=== PATIENT | male | born 1965 | race Caucasian/White ===

== ENCOUNTER 2023-12-13 21:57 | Inpatient (IN) | payer BC, SELFPAY ==
[2023-12-13 18:13] VITALS: BP 143/110
[2023-12-13 18:42] LABS: % Basophils 0.3 % (0-2); % Eosinophils 1.9 % (0-6); % Immature Granulocytes 0.5 % (0-0.5); % Lymphocytes 32.2 % (20.5-51.1); % Monocytes 12.4 % (1.7-9.3); % Neutrophils 52.7 % (42.2-75.2); Absolute Eosinophils 0.2 10^3/uL (0-0.7); Absolute Immature Granulocytes 0.1 10^3/uL (0-0.05); Absolute Lymphocytes 3.9 10^3/uL (1.2-3.4); Absolute Monocytes 1.5 10^3/uL (0.1-0.6); Absolute Neutrophils 6.4 10^3/uL (1.4-6.5); Hematocrit 43.6 % (39.0-52.0); Mean Corp Hgb Conc. 36.7 g/dL (33.0-37.0); Mean Corpuscular Hgb 32.9 pg (27.0-31.0); Mean Corpuscular Volume 89.7 fL (80.0-94.0); Mean Platelet Volume 9.8 fL (7.4-10.4); Nucleated Red Blood Cells % 0 % (-); Platelet Count 356 10^3/uL (130-400); Red Blood Cell Count 4.86 10^6/uL (4.70-6.10); Red Cell Dist. Width 12.1 % (11.5-14.5); White Blood Cell Count 12.1 10^3/uL (4.8-10.8)
[2023-12-13 18:55] LABS: ALT (SGPT) 46 U/L (0-50); AST (SGOT) 31 U/L (17-59); Albumin 3.7 g/dl (3.5-5.0); Alkaline Phosphatase 60 U/L (38-126); Blood Urea Nitrogen 19 mg/dl (9-20); Calcium 9.4 mg/dl (8.4-10.2); Carbon Dioxide 33 mmol/L (22-30); Chloride 96 mmol/L (98-107); Glucose 109 mg/dl (70-99); Potassium 4.7 mmol/L (3.5-5.1); Sodium 136 mmol/L (135-145); Total Bilirubin 0.6 mg/dl (0.2-1.3); Total Protein 6.5 g/dl (6.3-8.2); eGFR > 60.00
[2023-12-13 19:05] LABS: Troponin I < 0.012 ng/ml
[2023-12-13 19:06] LABS: Lipase 1642 U/L (23-300)
[2023-12-13] MEDS: DILAUDID 0.5 MG IV (19:38)
[2023-12-13] MEDS: PROTONIX IV 40 MG IV (19:38)
[2023-12-13] MEDS: ZOFRAN 4 MG IV (19:39)
[2023-12-13] MEDS: NSS 1000 IV (19:45)
--- NOTE | 2023-12-13 19:53 | ED.GENMED ---
History of Present Illness
General
Chief Complaint: Breathing Problem
Source: patient
Exam Limitations: none
Time Seen by Provider: 12/13/23 19:22
Travel History
Have you had any contact with someone who has COVID-19?: No
Do you have any symptoms of coronavirus? Fever > 100 degrees, chills, cough, shortness of breath, sore throat, loss of taste or smell, muscle aches, or headache?: No
History of Present Illness
History of Present Illness:
This is a 58 year old male that comes in with c/o upper abd discomfort. States that for the past 2 days he has this upper abd discomfort. States that he feels that it is pushing up on the diaphragm and it is difficulty for him to take a deep breath.
States that he had dental work with a graft last Wednesday. States that he was on Prednisone which he finished on Wednesday. He was also taking Ibuprofen 800mg TID and Amoxicillin TID. States that he stopped the Ibuprofen today. States that he feels
slightly SOB and had some loose stool today with bright red blood. States that he does have hemorrhoids. States that he also felt a little lightheaded. Denies any fever, chills, chest pain, nausea, vomiting, headache, urinary burning.
Past History
Past History
ED Past Medical History: None; Negative HTN, Hypercholesterolemia or NIDDM
ED Past Surgical History: Other (Splenectomy)
Social History
Tobacco: Non-smoker
Alcohol: Occasional
Personal:
Living: with family
Review of Systems
Review of Systems
All Other Systems: ROS reviewed and negative except as documented in HPI and ROS
Constitutional: Reports no symptoms; Denies fever or chills
EENT: Reports no symptoms
Respiratory: Reports trouble breathing (Slight); Denies cough
Cardiac: Denies chest pain
ABD/GI: Reports abdominal pain (Upper abd); Denies nausea, vomiting or diarrhea
: Reports no symptoms
Musculoskeletal: Reports no symptoms
Skin: Reports no symptoms
Neurological: Reports dizzy (lightheaded); Denies headache
Psychiatric: Reports no symptoms
Phy Exam
General Physical Exam
General Presentation: well appearing and no apparent distress
General age: appears stated age
General Skin: warm and dry
General Habitus: normal
General Mental: alert
General Hydration: appears well hydrated
ENT Exam
ENT Exam: TM's normal, pharynx normal and neck supple
Eye Exam
Eye Exam: EOMI
Cardiovascular Exam
Cardiovascular Exam: regular rate/rhythm, no edema, no murmur and normal peripheral pulses
Pulmonary Exam
Pulmonary Exam: lungs clear, no respiratory distress, no rales, chest non tender, no crackles, no rhonchi, no wheezing and no cough
Gastrointestinal Exam
Gastrointestinal Exam: normal bowel sounds, soft, no organomegaly, no pulsatile mass, non distended and tender (Tenderness with palpation epigastric area )
Musculoskeletal Exam
Musculoskeletal Exam: full ROM and no edema
Skin Exam
Skin Exam: normal color, warm/dry, no rash and no petechia
Psychiatric Exam
Psychiatric Exam: normal mood/affect
Scores
Heart Failure Risk
Heart Failure Risk Score: Not Applicable
Course
Orders/Labs/Results
Orders:
Orders
12/13/23 18:18
Electrocardiogram (*1) Urgent
Reason for Study: Shortness of Breath
EKG- Treatment ONCE
12/13/23 18:32
Complete Blood Count/With Diff Urgent
Comprehensive Metabolic Panel Urgent
Lipase Urgent
Triglycerides Urgent
Troponin I Urgent
12/13/23 19:34
0.9% Sodium Chloride 1000 ml [Nss] 1,000 ml IV BOLUS
HYDROmorphone [Dilaudid] 0.5 mg IV NOW STA
Ondansetron Injectable [Zofran] 4 mg IV NOW STA
Pantoprazole [Protonix IV] 40 mg IV NOW STA
US Abdomen Complete/Upper Urgent
Comment:
Reason For Exam: Upper abd pain, Pancreatitis
12/13/23 19:59
CR Chest - 2 Views Urgent
Comment:
Reason For Exam: SOB
12/13/23 21:21
Add On- LAB Routine
Tests Added?: triglycerides
Admit/Transfer Patient As Directed
Co-Sign Provider:
Level of Care: Inpatient admission
Assign to:: Medical/Surgical
Physician / Group: Chris
Diagnosis: Pancreatitis
Reason for Hospitalization: IVFs
Expected length of stay greater than two midnights?: Yes
ELOS- Estimated Length of Stay in days: 3
I certify the patient meets the requirements for IP care: Yes
12/13/23 21:22
Code Status As Directed
Resuscitation Status: Full Code
12/13/23 22:36
Acetaminophen [Tylenol] 650 mg PO Q4HPRN PRN
HYDROmorphone [Dilaudid] 0.25 mg IV Q3HPRN PRN
Lactated Ringers [Lr] 1,000 ml IV 125 mls/hr
Ondansetron Injectable [Zofran] 4 mg IV Q6HPRN PRN
12/13/23 22:36
Activity As Directed
Activity Level: Out of Bed-Early Mobility
With Assistance
I&O [Intake/ Output] As Directed
Frequency: q12h
Pneumatic Compression Sleeves As Directed
Type: Knee high
Vital Signs As Directed
Frequency: Per unit guidelines
DX Deep Vein Thrombosis Video Routine
12/14/23 Breakfast
NPO
Allow oral meds: Yes
Allow clear liquids: Sips of Clears
NPO with Ice Chips: Yes
Basic Metabolic Panel IN AM
Complete Blood Count/No Diff IN AM
Lipase IN AM
Magnesium IN AM
12/14/23 08:00
Lactobac/Bifidobac [Visbiome] 1 cap PO DAILY
Pantoprazole [Protonix] 40 mg PO BID
Abnormal Lab Results
12/13/23
18:32
WBC 12.1 H 10^3/uL
(4.8-10.8)
MCH 32.9 H pg
(27.0-31.0)
Abs Immat Gran (auto) 0.1 H 10^3/uL
(0-0.05)
Absolute Lymphs (auto) 3.9 H 10^3/uL
(1.2-3.4)
Absolute Monos (auto) 1.5 H 10^3/uL
(0.1-0.6)
Monocytes % 12.4 H %
(1.7-9.3)
Chloride 96 L mmol/L
(98-107)
Carbon Dioxide 33 H mmol/L
(22-30)
Glucose 109 H mg/dl
(70-99)
Triglycerides 674 H mg/dl
(10-149)
Lipase 1642 H* U/L
(23-300)
12/13/23 18:32
12/13/23 18:32
Leukocytosis, Chloride slightly low. carbon dioxide slightly elevated. Glucose nonfasting. Lipase elevation (pancreatitis). Troponin <0.012
Vital Signs
Initial and Last Documented VS:
Initial Vital Signs
Temp Pulse Resp BP Pulse Ox
98.0 F 73 16 143/110 98
12/13/23 18:13 12/13/23 18:13 12/13/23 18:13 12/13/23 18:13 12/13/23 18:13
Last Documented Vital Signs
Temp Pulse Resp BP Pulse Ox
98.0 F 73 16 135/83 95
12/13/23 18:13 12/13/23 18:13 12/13/23 18:13 12/13/23 22:18 12/13/23 23:00
MDM/Problems Addressed
Differential Diagnosis Includes:
Gastritis, Pancreatitis, Ulcers
MDM/Problems Addressed:
This is a 58 year old male that comes in with c/o upper abd discomfort. States that this starteed 2 days ago. Patient was taking Steroids, Ibuprofen and Amoxicillin after dental work.
Will check labs and US
Back into see patient. Explained that he has pancreatitis. US is normal. Explained that he will be admitted for further evaluation. Hospitalist notified.
Chronic conditions affecting care:
NA
Acute Exacerbation and/or Progression of Chronic Illness:
NA
*Radiology
Radiology exam reviewed: radiology read reviewed (US- NO cholelithiasis or bile duct dilation. Chest- No acute cardiopulmonary process)
*Pulse Oximetry
Patient hypoxic: no
*EKG
Interpreted by ED Provider?: Yes
Heart Rate: 72
Rate: normal
Rhythm: sinus
[place]: normal axis
Interval: normal interval
QRS Pattern: normal QRS
Ischemia: no ischemia
*Hand Mixer Interpretation
Rate: Hand Mixer- N/A
*Critical Care Note
Total Time (30-74mins, 75-104mins- exclusive of procedures): Not Applicable
ED Attending Note
-
Portions of this chart may have been created with voice recognition software.� Occasional wrong word or��sound alike� substitutions may have occurred due to the inherent limitations of voice recognition software.
Discharge Plan
Departure
Patient Disposition: Admit
Date of Disposition: 12/13/23
Time of Disposition: 20:49
Admit to: Med/Surg
Presentation/result/management discussed w/ accepting MD/DO: Hospitalist
Patient with high blood pressure during this ER visit?: Yes
Condition: Good
Covid-19: Not Applicable
Discharge Problem:
Acute pancreatitis
Interventions
Interventions:
*Risk Screen - Suicide Last Done: 12/13/23 19:47
*General Assessment Last Done: 12/13/23 19:29
*Neglect/Abuse Screening Last Done: 12/13/23 19:47
*ED COVID-19 Vaccine History Last Done: 12/13/23 18:13
ED- Cardiac Assessment Last Done: 12/13/23 19:49
ED- Pulmonary Assessment Last Done: 12/13/23 19:49
[2023-12-13 20:45] VITALS: BP 144/103
--- NOTE | 2023-12-13 21:27 | HPS.HSE ---
Addendum entered and electronically signed by Felipe Perez DO 12/13/23 22:26:
Patient seen and examined independently. Agree with findings and plan as set forth by Mala Wang PA-C.
Patient is a 58y M with no significant PMH who presents to ED complaining of abdominal pain x 3 days. Patient notes that he underwent dental procedure last Wednesday including tooth extraction and grafting. He was placed on amoxicillin,
prednisone and ibuprofen 800mg TID following that procedure. Patient states that he completed the prednisone course. He developed abdominal discomfort in the epigastric region with radiation to the back on Wednesday. He stopped taking the
ibuprofen at that point. His symptoms have not improved. The pain is fairly constant. He denies any N/V. Patient denies any prior history of similar symptoms.
Patient had EGD done in October 2023 showing evidence of reflux and possible eosinophilic esophagitis.
He was prescribed Nexium daily but notes that he never started that medication.
Ass:
Abdominal Pain
Pancreatitis
Suspected Gastritis / PUD
GERD / Eosinophilic Esophagitis
Recent Dental Procedure
Plan:
Admit for further evaluation and treatment.
NPO, IVFs, pain control.
Discontinue NSAIDs, steroid, amoxicillin, etc.
Suspect drug-induced gastritis +/- pancreatitis (though no N/V).
GI evaluation for additional recommendations.
Follow for clinical improvement.
Original Note:
Family Physician
-
Family Physician: Ashkan Chen
Chief Complaint
-
Abdominal Pain
History of Present Illness
Patient is a 58 y/o male who presents with abdominal pain x 3 days. Patient reports the pain is located in the upper abdomen and radiates around to the back. He reports slightly decreased appetite, but is able to tolerate food without increased
pain, nausea or vomiting. He has been taking amoxicillin, prednisone and ibuprofen following a recent dental procedure. He did stop the ibuprofen yesterday as a possible cause, but notes this did not improve his symptoms. He reports some loose
stools since being on the antibiotics. He denies fevers, sweats or chills. Patient reports recent EGD in Oct 2023 and was instructed to take a PPI afterwards which patient has not been taking. Reviewed EGD report which raised suspicion for
eosinophilic esophagitis which was confirmed with biopsy.
Medical History
Past Medical History
Past Medical History: Reports None
Past Surgical History: Reports Other
Additional Past Surgical History:
Splenectomy
Social History
Tobacco: Non-smoker
Alcohol: Other (Rare alcohol use. Patient reports half a beer last week)
Family History
Family History: Not pertinent
Allergies / Home Medications
Allergies reflects when Allergies were last updated in [employer].
Home Medications with original date entered in [employer]
Allergy/Medication List:
Allergies
Allergy/AdvReac Type Severity Reaction Status Date / Time
No Known Allergies Allergy Verified 12/13/23 18:17
Home Medications
amoxicillin 500 mg capsule 500 mg PO TID 12/13/23
ibuprofen 800 mg tablet 800 mg PO TIDPRN PRN mild pain 12/13/23
omega 6-qxw-xal-fish oil 1,000 mg (120 mg-180 mg) capsule (Fish Oil) 1 cap PO DAILY 12/13/23
therapeutic multivitamin 1 tab PO DAILY 12/13/23
Review of Systems
-
A 12 point ROS was completed and negative except as noted: Yes
Constitutional: Denies Fever or Chills
Respiratory: Denies Cough or Trouble Breathing
Cardiac: Denies Chest Pain or Palpitations
Abdomen/GI: Reports See HPI
Physical Exam
Vital Signs
Vital Signs
Temp Pulse Resp BP Pulse Ox
98.0 F 73 16 144/103 97
12/13/23 18:13 12/13/23 18:13 12/13/23 18:13 12/13/23 20:45 12/13/23 20:45
Physical Exam
General: Comfortable and Conversant
HEENT: Anicteric and Moist mucous membranes
Respiratory: Clear and Non Labored Respirations
Cardiac: S1/S2 and Regular Rhythm
GI: Soft, Non Distended and Tender (Epigastric region without rebound or guarding)
Musculoskeletal: No Clubbing, No Cyanosis and No Edema
Skin: Warm and Dry
Neuro: Awake, Alert, Oriented and Nonfocal/grossly intact
Laboratory Results
-
12/13/23 18:32
12/13/23 18:32
Laboratory Results
Total Bilirubin 0.6 mg/dl (0.2-1.3) 12/13/23 18:32
AST 31 U/L (17-59) 12/13/23 18:32
ALT 46 U/L (0-50) 12/13/23 18:32
Alkaline Phosphatase 60 U/L (38-126) 12/13/23 18:32
Troponin I < 0.012 ng/ml 12/13/23 18:32
Lipase 1642 U/L (23-300) H* 12/13/23 18:32
Data Reviewed
-
Lab Data: Labs Reviewed by me
Impression/Plan
-
Abdominal Pain, possible Pancreatitis secondary to recent steroids vs Gastritis/PUD in setting of NSAIDs and steroids
-Consult GI
-NPO overnight pending GI eval
-Check triglyceride level
-Continue IVFs
-Continue Protonix BID
-Continue Dilaudid prn
Recent Dental Work
-Will discontinue amoxicillin as completed 6/7 days
-Completed coarse of steroids
-Stop NSAIDs
DVT proph: SCDs
Code Status: Full Code
[2023-12-13 22:13] LABS: Triglycerides 674 mg/dl (10-149)
[2023-12-13 22:18] VITALS: BP 135/83
[2023-12-13] MEDS: LR 1000 IV (23:05)
[2023-12-14] VITALS (7 sets, daily range): BP systolic 127–147; BP diastolic 78–110; BMI 29.4
[2023-12-14 05:43] LABS: Hemoglobin 14.6 g/dL (13.0-18.0); Mean Corp Hgb Conc. 35.6 g/dL (33.0-37.0); Mean Corpuscular Volume 92.8 fL (80.0-94.0); Mean Platelet Volume 10.1 fL (7.4-10.4); Platelet Count 315 10^3/uL (130-400); Red Blood Cell Count 4.42 10^6/uL (4.70-6.10); Red Cell Dist. Width 12.1 % (11.5-14.5); White Blood Cell Count 10.9 10^3/uL (4.8-10.8)
[2023-12-14 06:12] LABS: Blood Urea Nitrogen 14 mg/dl (9-20); Calcium 8.4 mg/dl (8.4-10.2); Carbon Dioxide 31 mmol/L (22-30); Chloride 99 mmol/L (98-107); Glucose 89 mg/dl (70-99); Potassium 3.9 mmol/L (3.5-5.1); Sodium 135 mmol/L (135-145)
[2023-12-14 06:26] LABS: Estimated Creatinine Clearance > 125 ml/min; Lipase 635 U/L (23-300); eGFR > 60.00
[2023-12-14] MEDS: LR 1000 IV ×3 (07:23→21:07)
[2023-12-14] MEDS: VISBIOME 1 CAP PO (07:43)
[2023-12-14] MEDS: PROTONIX 40 MG PO ×2 (07:43→21:07)
--- NOTE | 2023-12-14 10:00 | CON.GI ---
Addendum entered and electronically signed by Opal Krishnamurthy MD 12/14/23 21:30:
I saw and examined the patient.
The CARPET MEASURER or PA's note was reviewed and I agree with the note.
Comment: 58-year-old male with history of eosinophilic esophagitis diagnosed on recent upper endoscopy presenting with complaints of epigastric discomfort going to the back starting Wednesday. Last Wednesday he reports getting dental work done with
extraction and bone graft, prescribed ibuprofen 800mg 3 times a day, dexamethasone for 5 days and amoxicillin. He finished a course of dexamethasone and when abdominal discomfort started he stopped the ibuprofen. No nausea or vomiting. No fevers
or chills. No heartburn , constipation, diarrhea. He did have an episode of wipe type bleeding over the weekend but since then had normal formed stool. Recent upper endoscopy and colonoscopy with Dr. Reyes as below.
In the emergency room, he was noted to have elevated lipase with normal LFTs.
Abdominal ultrasound was unremarkable.
-Abdominal pain and elevated lipase suggesting acute pancreatitis, first episode.
No evidence of gallstones on ultrasound and no history of alcohol use
? Medication related-dexamethasone?
Will get CT scan of the abdomen and pelvis with oral and IV contrast.
Okay for clear liquid diet, continue IV hydration
Monitor lipase avoid NSAIDs
Okay for PPI
We will follow
Original Note:
Consultation
-
Date/Time Consultation Requested: 12/13/23 @22:36
Date/Time Consultation Performed: 12/14/23 @ 10:00
Requesting Provider: Mala Wang PA-C
Performing Provider: MOE Arrington; Dr. Krishnamurthy
Reason for Consultation: Abdominal Pain, pancreatitis, possible gastritis/PUD
Medical History
Chief Complaint / HPI
Chief Complaint: Abdominal pain
History of Present Illness:
The patient is a 58-year-old male with PMH significant for ?EoE (not compliant with PPI), hemorrhoids, who presented to the emergency room complaints of abdominal pain. We being asked evaluate for the presenting symptoms along with concern for
pancreatitis and gastritis. The patient reports that last week he underwent dental work and had been prescribed steroids, amoxicillin, and ibuprofen for pain management. He notes on Wednesday he was not feeling well,experiencing increased
discomfort in his abdomen and feeling generally unwell. He reports this lasted into Wednesday and was a constant, nagging pain in the middle of his abdomen. He reports the pain did radiate to his back and felt pressure into his upper chest. He notes
that he does have a history of muscle spasms and felt this was somewhat similar. He was told that ibuprofen can cause stomach problems therefore he stopped taking it but had been taking it 2-3 times per day since his dental procedure. He reports
he did not see improvement once stopping the ibuprofen. He also stopped his steroids on Wednesday. He denies any fevers, chills, nausea, vomiting, constipation, diarrhea, or abnormal weight loss. He does admit to 1 episode of slight rectal
bleeding x 1 episode and then it resolved. He otherwise denies any melena or hematemesis. He does have a history of hemorrhoids which was seen on colonoscopy in October 2023. He otherwise denies any use of alcohol significantly, with his last
alcoholic beverage on Wednesday last week. He denies any drug use or marijuana use. He denies any prior history of pancreatitis or other liver or GI problems. He denies any use of blood thinners. He underwent endoscopy on 11/02/[address] Reyes for
heartburn evaluation and dysphagia, which showed esophageal mucosal changes suggestive of EOE, gastritis, and 2 cm hiatal hernia. Colonoscopy was done at that time as well which showed nonbleeding internal hemorrhoids, diverticulosis in the sigmoid
colon otherwise normal. Routine labs in the ER showed a WBC 12.1, total bilirubin 0.6, AST 31, ALT 46, alk phos 60, triglycerides 674, lipase 1642. Ultrasound of the abdomen was done showing no evidence of gallstones or biliary ductal dilation. He
was made n.p.o., started on twice daily PPI, and admitted for further evaluation by GI.
Past Medical History
Past Medical History: Other (Eosinophilic esophagitis, hemorrhoids)
Past Surgical History: None
Social History
Tobacco: Non-Smoker
Alcohol: Other (Very rare alcohol use)
Drug: None
Personal:
Living: With Family
Family History
Family History: Reviewed & Not Pertinent and Other (Sister had her gallbladder removed, no family history of colon cancer or pancreatic cancer)
Allergies / Home Medications
Allergy/AdvReac Type Severity Reaction Status Date / Time
No Known Allergies Allergy Verified 12/13/23 18:17
Medication Instructions Recorded
amoxicillin 500 mg capsule 500 mg PO TID 12/13/23
ibuprofen 800 mg tablet 800 mg PO TIDPRN PRN mild pain 12/13/23
omega 5-idx-kjz-fish oil 1,000 mg 1 cap PO DAILY 12/13/23
(120 mg-180 mg) capsule (Fish Oil)
therapeutic multivitamin 1 tab PO DAILY 12/13/23
Review of Systems
-
History Source: Patient
Constitutional: Reports No Symptoms
EENT: Reports No Symptoms
Respiratory: Reports No Symptoms
Cardiac: Reports No Symptoms
Abdomen/GI: Reports Abdominal Pain and Other (Painless rectal bleeding x 1 episode)
: Reports No Symptoms
Musculoskeletal: Reports No Symptoms
Skin: Reports No Symptoms
Neurological: Reports No Symptoms
Vital Signs
Temp Pulse Resp BP Pulse Ox
98.4 F 69 16 127/85 97
12/14/23 07:30 12/14/23 07:30 12/14/23 07:30 12/14/23 07:30 12/14/23 07:30
Physical Exam
Exam
General: Well Developed and Well Nourished
HEENT: Normocephalic, Anicteric and Atraumatic
Respiratory: Clear
Cardiac: S1/S2 and Regular Rhythm
Breast: N/A
GI: Soft, Normal Bowel Sounds, Tender (Very minimally tender in the mid epigastric area) and Distended (Minimally distended)
Rectal: Deferred by Provider
Musculoskeletal: No Edema
Skin: Warm and Dry
Neuro: Awake, Alert and Oriented
Psych: Calm
Results
WBC 10.9 10^3/uL (4.8-10.8) H 12/14/23 05:26
Hgb 14.6 g/dL (13.0-18.0) 12/14/23 05:26
Hct 41.0 % (39.0-52.0) 12/14/23 05:26
MCV 92.8 fL (80.0-94.0) 12/14/23 05:26
Plt Count 315 10^3/uL (130-400) 12/14/23 05:26
Absolute Neuts (auto) 6.4 10^3/uL (1.4-6.5) 12/13/23 18:32
Sodium 135 mmol/L (135-145) 12/14/23 05:26
Potassium 3.9 mmol/L (3.5-5.1) 12/14/23 05:26
Chloride 99 mmol/L (98-107) 12/14/23 05:26
Carbon Dioxide 31 mmol/L (22-30) H 12/14/23 05:26
BUN 14 mg/dl (9-20) 12/14/23 05:26
Creatinine 0.8 mg/dL (0.7-1.3) 12/14/23 05:26
Calcium 8.4 mg/dl (8.4-10.2) 12/14/23 05:26
Total Bilirubin 0.6 mg/dl (0.2-1.3) 12/13/23 18:32
AST 31 U/L (17-59) 12/13/23 18:32
ALT 46 U/L (0-50) 12/13/23 18:32
Alkaline Phosphatase 60 U/L (38-126) 12/13/23 18:32
Lipase 635 U/L (23-300) H 12/14/23 05:26
Diagnostic Image Results:
12/13/23 US abdomen: no biliary dilation or cholelithiasis.
Prior GI Procedures:
EGD: Dr. Reyes, 11/02/2023: Changes consistent with eosinophilic esophagitis, confirmed on biopsy; gastritis, 2 cm hiatal hernia
Colonoscopy: Dr. Reyes 11/02/2024, sigmoid colon tics, internal nonbleeding hemorrhoids
Assessment / Plan
-
The patient is a 58-year-old male with a past medical history significant for eosinophilic esophagitis, hemorrhoids, who presented to the emergency room complaints of abdominal pain. We being asked evaluate for the presenting symptoms along with
concern for pancreatitis and gastritis. The patient underwent recent dental work last week, was prescribed ibuprofen, amoxicillin, and dexamethasone post surgery, now with abdominal pain and elevated lipase level. Ultrasound imaging showing no
concern for biliary etiology. LFTs within normal limits. Triglycerides significantly elevated at 674. Lipase 1642, down to 635. Mild leukocytosis but improving. His pain is improving at this time.
Problem list:
-abdominal pain, likely multifactorial gastritis v pancreatitis
-hx EoE not on PPI
-elevated lipase
-elevated triglycerides
-Leukocytosis
-History of hemorrhoid
Recommendations:
-Etiology of current symptoms possibly multifactorial with concern for pancreatitis versus gastritis versus medication induced versus other
--- No biliary etiology on ultrasound imaging with normal LFTs. He denies significant alcohol use.
--- The patient was taking dexamethasone which is a class Ib medication that can induce pancreatitis. Also likely component of gastritis with recent daily ibuprofen use and amoxicillin.
-Will continue twice daily PPI
-Okay to start clear liquid diet as his pain is improving
-Continue IV fluids with LR at 150 cc/h
-Repeat LFTs in a.m. to ensure they continue to stay normal
-Triglycerides are elevated but not significantly enough to cause pancreatitis. He will need OP follow-up/management of this.
-Consider repeat endoscopy inpatient versus outpatient pending clinical course
-Will follow
-
-
Thank you for consultation and allowing me to participate in the patient's care. Please call the education research analyst GI physician during the after hours with any questions or concerns.
--- NOTE | 2023-12-14 13:43 | W.PN.HOSP.TC ---
Today's Communication/Plan
-
Monitor vital signs see plan
GI following
Started on clears
Pain control
Continue with lactated Ringer
Assessment / Plan
Assessment / Plan
General: Comfortable and Conversant
HEENT: Anicteric and Moist mucous membranes
Respiratory: Clear and Non Labored Respirations
Cardiac: S1/S2 and Regular Rhythm
GI: Soft, Non Distended and Tender (Epigastric region without rebound or guarding)
Musculoskeletal: No Clubbing, No Cyanosis and No Edema
Skin: Warm and Dry
Neuro: Awake, Alert, Oriented and Nonfocal/grossly intact
Abdominal Pain, possible Pancreatitis secondary to recent steroids vs Gastritis/PUD in setting of NSAIDs and steroids
-lipase elevated; trending down
now on clears
GI following
Suspect pancreatitis could be secondary to dexamethasone, NSAIDs patient was taking 800 mg ibuprofen at least 3 times a day.
Triglycerides are elevated however not significantly elevated to cause pancreatitis.
-Continue IVFs
-Continue Protonix BID
-Continue Dilaudid prn
Recent Dental Work
-Will discontinue amoxicillin as completed 6/7 days
-Completed coarse of steroids
-Stop NSAIDs
DVT proph: SCDs
Code Status: Full Code
Anticipated Discharge: Within 24 hours
Subjective/Interval History
-
Date of Service: December 14, 2023
Abdominal pain is slowly improving
Objective Data
-
Labs:
Laboratory Results
12/14/23
05:26
WBC 10.9 H
Hgb 14.6
Hct 41.0
Plt Count 315
Sodium 135
Potassium 3.9
Chloride 99
Carbon Dioxide 31 H
BUN 14
Creatinine 0.8
Glucose 89
Calcium 8.4
Vital Signs:
Vital Signs
Temp Pulse Resp BP Pulse Ox
98.4 F 69 16 127/85 97
12/14/23 07:30 12/14/23 07:30 12/14/23 07:30 12/14/23 07:30 12/14/23 07:30
--- NOTE | 2023-12-14 15:30 | PTCARENOTE ---
pt aaox3. states sone discomfort in upper mid abd epigastric area. did not want pain med at this time. clear liquid diet provided. ivf running as ordered.
--- NOTE | 2023-12-14 21:22 | PTCARENOTE ---
Patient received from ED via wheelchair. LR infusing at 150ml/hr, patient denies any pain. Vital WNL, tolerating clears. Will monitor.
[2023-12-15] MEDS: LR 1000 IV ×3 (03:42→20:20)
[2023-12-15] MEDS: OMNIPAQUE 50 ML PO (08:00)
[2023-12-15] MEDS: TYLENOL 650 MG PO ×2 (08:09→18:23)
[2023-12-15] MEDS: VISBIOME 1 CAP PO (08:09)
[2023-12-15] MEDS: PROTONIX 40 MG PO ×2 (08:09→20:20)
[2023-12-15 08:12] VITALS: BP 138/93
[2023-12-15 09:11] LABS: % Basophils 0.3 % (0-2); % Eosinophils 4.4 % (0-6); % Immature Granulocytes 0.6 % (0-0.5); % Lymphocytes 36.9 % (20.5-51.1); % Monocytes 11.8 % (1.7-9.3); Absolute Eosinophils 0.4 10^3/uL (0-0.7); Absolute Immature Granulocytes 0.1 10^3/uL (0-0.05); Absolute Lymphocytes 3.3 10^3/uL (1.2-3.4); Absolute Neutrophils 4.1 10^3/uL (1.4-6.5); Hematocrit 44.1 % (39.0-52.0); Hemoglobin 15.5 g/dL (13.0-18.0); Mean Corp Hgb Conc. 35.1 g/dL (33.0-37.0); Mean Corpuscular Volume 91.1 fL (80.0-94.0); Nucleated Red Blood Cells % 0 % (-); Platelet Count 335 10^3/uL (130-400); Red Blood Cell Count 4.84 10^6/uL (4.70-6.10); Red Cell Dist. Width 12.3 % (11.5-14.5); White Blood Cell Count 8.8 10^3/uL (4.8-10.8)
[2023-12-15 10:01] LABS: Total Bilirubin 1.2 mg/dl (0.2-1.3)
[2023-12-15 10:18] LABS: ALT (SGPT) 37 U/L (0-50); AST (SGOT) 27 U/L (17-59); Albumin 3.3 g/dl (3.5-5.0); Alkaline Phosphatase 53 U/L (38-126); Blood Urea Nitrogen 11 mg/dl (9-20); Carbon Dioxide 31 mmol/L (22-30); Chloride 96 mmol/L (98-107); Estimated Creatinine Clearance 112 ml/min; Glucose 98 mg/dl (70-99); Potassium 4.3 mmol/L (3.5-5.1); Sodium 133 mmol/L (135-145); eGFR > 60.00
[2023-12-15 11:06] LABS: Lipase 368 U/L (23-300)
--- NOTE | 2023-12-15 12:00 | W.PN.HOSP.TC ---
Today's Communication/Plan
-
Monitor vital signs and see plan
CT scan
Continue with LR
Clears
GI to see today
Assessment / Plan
Assessment / Plan
General: Comfortable and Conversant
HEENT: Anicteric and Moist mucous membranes
Respiratory: Clear and Non Labored Respirations
Cardiac: S1/S2 and Regular Rhythm
GI: Soft, Non Distended and Tender (Epigastric region without rebound or guarding)
Musculoskeletal: No Clubbing, No Cyanosis and No Edema
Skin: Warm and Dry
Neuro: Awake, Alert, Oriented and Nonfocal/grossly intact
Abdominal Pain, possible Pancreatitis secondary to recent steroids vs Gastritis/PUD in setting of NSAIDs and steroids
-lipase elevated; trending down
now on clears
GI following
Suspect pancreatitis could be secondary to dexamethasone, NSAIDs patient was taking 800 mg ibuprofen at least 3 times a day.
Triglycerides are elevated however not significantly elevated to cause pancreatitis.
-Continue IVFs
-Continue Protonix BID
-Continue Dilaudid prn
CT pending
Recent Dental Work
-Will discontinue amoxicillin as completed 6/7 days
-Completed coarse of steroids
-Stop NSAIDs
DVT proph: SCDs
Code Status: Full Code
Anticipated Discharge: Within 24 hours
Subjective/Interval History
-
Date of Service: December 15, 2023
Pain is improving
Objective Data
-
Labs:
Laboratory Results
12/15/23
08:37
WBC 8.8
Hgb 15.5
Hct 44.1
Plt Count 335
Sodium 133 L
Potassium 4.3
Chloride 96 L
Carbon Dioxide 31 H
BUN 11
Creatinine 0.8
Glucose 98
Calcium 9.0
Total Bilirubin 1.2
AST 27
ALT 37
Alkaline Phosphatase 53
Vital Signs:
Vital Signs
Temp Pulse Resp BP Pulse Ox
98.3 F 78 16 138/93 94
12/15/23 08:12 12/15/23 08:12 12/15/23 08:12 12/15/23 08:12 12/15/23 08:12
I&O
12/14/23 12/15/23 12/16/23
06:59 06:59 06:59
Intake Total 600 / 600
Balance 600 / 600
--- NOTE | 2023-12-15 12:24 | W.PN.GI.CBS2 ---
Addendum entered and electronically signed by Opal Krishnamurthy MD 12/15/23 18:55:
I saw and examined the patient.
The CLAIM TAKER or PA's note was reviewed and I agree with the note.
Comment: Patient currently feels well. Tolerating low-fat diet.
Reviewed CT scan with patient. Mild pancreatitis noted on the CT scan, also focal abnormal wall thickening along the cardia, recent upper endoscopy was unremarkable except evidence of eosinophilic esophagitis.
-From pancreatitis standpoint, he is improving.
Low-fat diet
Continue to abstain from alcohol
Will follow
-Abnormal CT scan with thickening of the cardia
Recent upper endoscopy October 2023 unremarkable
Will need to follow-up again with Dr. Reyes in the office
Original Note:
Today's Communication / Plan
-
-Etiology of current symptoms possibly multifactorial with concern for pancreatitis versus gastritis versus medication induced versus other
--- The patient was taking dexamethasone which is a class Ib medication that can induce pancreatitis. Also likely component of gastritis with recent daily ibuprofen use and amoxicillin.
discussed CT with pancreatitis and gastric thickening finding with pt and . He just completed EGD 11/02/23 with gastritis-- will review with Dr. Krishnamurthy any reason to need to repeat
would be concerned recent increased NSAID and steroid use lead to gastric thickening vs other
discussed NSAID avoidance
cont PPI BID
repeat TG as 674 to assess for downward trend
lipase improving, LFT's remains normal
trial low fat diet for today
decreased IVF to 80ml/hr
Assessment / Plan
-
The patient is a 58-year-old male with a past medical history significant for eosinophilic esophagitis, hemorrhoids, who presented to the emergency room complaints of abdominal pain. We being asked evaluate for the presenting symptoms along with
concern for pancreatitis and gastritis. The patient underwent recent dental work last week, was prescribed ibuprofen, amoxicillin, and dexamethasone post surgery, now with abdominal pain and elevated lipase level. Ultrasound imaging showing no
concern for biliary etiology. LFTs within normal limits. Triglycerides significantly elevated at 674. Lipase 1642, down to 635. Mild leukocytosis but improving.
12/15/23 CT Abd/pel W Iv And Oral Contr
1. � Subtle slightly decreased attenuation along the pancreatic head which could possibly be related to edematous change/pancreatitis. No abnormal focal pancreatic lesion identified. No signs of significant peripancreatic inflammatory changes.
2. � As above, apparent focal abnormal wall thickening along the cardia of the stomach. While component of underdistention is possible, inflammatory or neoplastic process cannot be excluded. This could be further evaluated with endoscopy. Near this
level, there are mildly enlarged gastrohepatic ligament lymph nodes as above.
3. � Hepatic fatty infiltration.
4. � Postoperative changes of the spleen. As described above, there is small mass in the left lower quadrant as well as a small mesenteric nodule which could represent small splenules or residual splenic tissue related to the prior surgery
EGD:� Dr. Reyes, 11/02/2023: Changes consistent with eosinophilic esophagitis, confirmed on biopsy; gastritis, 2 cm hiatal hernia
Problem list:
-abdominal pain, likely multifactorial gastritis v pancreatitis
- abnormal CT with concern for pancreatitis but wall thickening on stomach also noted with hx recent EGD
-hx EoE not on PPI
-elevated lipase
-elevated triglycerides
-Leukocytosis
-History of hemorrhoid
Recommendations:
-Etiology of current symptoms possibly multifactorial with concern for pancreatitis versus gastritis versus medication induced, TG elevation versus other
--- The patient was taking dexamethasone which is a class Ib medication that can induce pancreatitis. Also likely component of gastritis with recent daily ibuprofen use and amoxicillin.
discussed CT with pancreatitis and gastric thickening finding with pt and . He just completed EGD 11/02/23 with gastritis-- will review with Dr. Krishnamurthy any reason to need to repeat
would be concerned recent increased NSAID and steroid use lead to gastric thickening vs other
discussed NSAID avoidance
cont PPI BID
repeat TG as 674 to assess for downward trend
lipase improving, LFT's remains normal
trial low fat diet for today
decreased IVF to 80ml/hr
Subjective
Subjective
Date of Service: December 15, 2023
12/15/23 brown stool on clear diet abdominal pain improved
Objective
Data Reviewed
Laboratory Data:
Laboratory Results
12/15/23 08:37
12/15/23 08:37
Laboratory Results
Magnesium 2.0 mg/dl (1.6-2.3) 12/14/23 05:26
Total Bilirubin 1.2 mg/dl (0.2-1.3) 12/15/23 08:37
AST 27 U/L (17-59) 12/15/23 08:37
ALT 37 U/L (0-50) 12/15/23 08:37
Alkaline Phosphatase 53 U/L (38-126) 12/15/23 08:37
Lipase 368 U/L (23-300) H 12/15/23 08:37
Vital Signs and I&O:
Vital Signs
Temp Pulse Resp BP Pulse Ox
98.3 F 78 16 138/93 94
12/15/23 08:12 12/15/23 08:12 12/15/23 08:12 12/15/23 08:12 12/15/23 08:12
I&O
12/14/23 12/15/23 12/16/23
06:59 06:59 06:59
Intake Total 600 / 600
Balance 600 / 600
Physical Exam
Physical Exam
HEENT: Anicteric and Moist mucous membranes
Cardiology: Normal Sinus Rhythm
Pulmonary: Clear
GI: Soft, Non Distended and Non Tender
Extremities: No Edema
[2023-12-15 13:34] LABS: Triglycerides 290 mg/dl (10-149)
--- NOTE | 2023-12-15 15:50 | CM ---
Alert awake oriented patient who lives with his Mala who lives in a 2 story home with 0 step to enter and 13 steps to bed and bathroom. He is independent in driving and in all activities of daily living.He was offered VN he declined need.No
adaptive devices.
No VN hx / No SNF history
Pharmacy [facility]
PCP DR Chen
PLAN Home Declined VN
[2023-12-15 16:15] VITALS: BP 135/92
[2023-12-15] MEDS: DILAUDID 0.25 MG IV (21:49)
[2023-12-15 23:14] VITALS: BP 114/95
[2023-12-16 05:45] LABS: % Basophils 0.6 % (0-2); % Eosinophils 5.4 % (0-6); % Immature Granulocytes 0.3 % (0-0.5); % Lymphocytes 39.8 % (20.5-51.1); % Monocytes 14.8 % (1.7-9.3); % Neutrophils 39.1 % (42.2-75.2); Absolute Eosinophils 0.4 10^3/uL (0-0.7); Absolute Lymphocytes 2.8 10^3/uL (1.2-3.4); Absolute Neutrophils 2.8 10^3/uL (1.4-6.5); Hematocrit 42.9 % (39.0-52.0); Hemoglobin 15.3 g/dL (13.0-18.0); Mean Corp Hgb Conc. 35.7 g/dL (33.0-37.0); Mean Corpuscular Hgb 32.5 pg (27.0-31.0); Mean Corpuscular Volume 91.1 fL (80.0-94.0); Mean Platelet Volume 9.8 fL (7.4-10.4); Nucleated Red Blood Cells % 0 % (-); Platelet Count 313 10^3/uL (130-400); Red Blood Cell Count 4.71 10^6/uL (4.70-6.10)
[2023-12-16 06:12] LABS: ALT (SGPT) 34 U/L (0-50); AST (SGOT) 25 U/L (17-59); Albumin 3.4 g/dl (3.5-5.0); Alkaline Phosphatase 65 U/L (38-126); Blood Urea Nitrogen 10 mg/dl (9-20); Calcium 8.6 mg/dl (8.4-10.2); Carbon Dioxide 34 mmol/L (22-30); Chloride 99 mmol/L (98-107); Estimated Creatinine Clearance 100 ml/min; Glucose 91 mg/dl (70-99); Lipase 221 U/L (23-300); Potassium 4.1 mmol/L (3.5-5.1); Sodium 132 mmol/L (135-145); Total Bilirubin 1.2 mg/dl (0.2-1.3); eGFR > 60.00
[2023-12-16] MEDS: PROTONIX 40 MG PO (07:44)
[2023-12-16] MEDS: VISBIOME 1 CAP PO (07:44)
[2023-12-16] MEDS: LR 1000 IV (07:53)
[2023-12-16 08:22] VITALS: BP 139/84
--- NOTE | 2023-12-16 10:50 | W.PN.HOSP.TC ---
Today's Communication/Plan
-
Monitor vital sign closely plan
Tolerated low-fat
Patient will follow-up with GI outpatient
Discharge today
Time of discharge 34 minutes
Assessment / Plan
Assessment / Plan
General: Comfortable and Conversant
HEENT: Anicteric and Moist mucous membranes
Respiratory: Clear and Non Labored Respirations
Cardiac: S1/S2 and Regular Rhythm
GI: Soft, Non Distended and non Tender
Musculoskeletal: No Clubbing, No Cyanosis and No Edema
Skin: Warm and Dry
Neuro: Awake, Alert, Oriented and Nonfocal/grossly intact
Abdominal Pain, possible Pancreatitis secondary to recent steroids vs Gastritis/PUD in setting of NSAIDs and steroids
-lipase elevated; trending down
now on low fat; patient will follow-up with GI outpatient
GI following
Suspect pancreatitis could be secondary to dexamethasone, NSAIDs patient was taking 800 mg ibuprofen at least 3 times a day.
Triglycerides are elevated however not significantly elevated to cause pancreatitis.
-Continue IVFs
-Continue Protonix;Mild pancreatitis noted on the CT scan, also focal abnormal wall thickening along the cardia
Recent endoscopy with eosinophilic esophagitis
Hyponatremia
monitor
Recent Dental Work
-Will discontinue amoxicillin as completed 6/7 days
-Completed coarse of steroids
-Stop NSAIDs
DVT proph: SCDs
Code Status: Full Code
Anticipated Discharge: Today
Subjective/Interval History
-
Date of Service: December 16, 2023
pain is better
Objective Data
-
Labs:
Laboratory Results
12/16/23
05:21
WBC 7.0
Hgb 15.3
Hct 42.9
Plt Count 313
Sodium 132 L
Potassium 4.1
Chloride 99
Carbon Dioxide 34 H
BUN 10
Creatinine 0.9
Glucose 91
Calcium 8.6
Total Bilirubin 1.2
AST 25
ALT 34
Alkaline Phosphatase 65
Vital Signs:
Vital Signs
Temp Pulse Resp BP Pulse Ox
97.5 F 73 16 139/84 97
12/16/23 08:22 12/16/23 08:22 12/16/23 08:22 12/16/23 08:22 12/16/23 08:22
I&O
12/15/23 12/16/23 12/17/23
06:59 06:59 06:59
Intake Total 600 / 600 1919
Balance 600 / 600 1919
--- NOTE | 2023-12-16 10:58 | W.DCSUMMARY ---
Discharge Summary
Discharge Data
Date of Admission: 12/13/23
Date of Discharge: 12/16/23
-
Pending Results: No
Hospital Course
58-year-old male with past medical history of recent dental work came to the hospital for abdominal pain known to have pancreatitis. Patient lipase was initially elevated which was downtrending prior to discharge. Patient symptoms over time
improved with pain control and fluids. Patient was able to tolerate low-fat diet prior to the discharge. CT scan was done which showed mild pancreatitis. There was also focal abnormal wall thickening along the cardia of the stomach for which GI
recommended patient to follow-up with them outpatient. It was determined that patient likely had pancreatitis due to dexamethasone and NSAIDs. Once patient symptoms improved he was then discharged home with close follow-up with all his physicians
outpatient.
Discharge Plan
-
Patient Disposition: Home (Routine Discharge)
Discharge Diagnosis/Procedures: Acute pancreatitis likely secondary to dexamethasone
Diet: Low Fat
Activity: As tolerated
Driving Restrictions: As prior to admission
Bathing Restrictions: None
Referrals:
Aurora Reyes MD [Active] - (call to schedule GI follow up)
Ashkan Chen DO [Family Provider] - in less than 1 week
Prescriptions:
New
acetaminophen 325 mg Tablet
650 mg PO Q4HPRN PRN (Reason: mild pain/ fever>100.5F) Qty: 30 0RF
Lactobac/Bifidobac [Visbiome]
1 cap PO DAILY Qty: 30 0RF
pantoprazole [Protonix] 40 mg tablet,delayed release (DR/EC)
40 mg PO BID Qty: 60 0RF
Continued
therapeutic multivitamin Tablet
1 tab PO DAILY
omega 3-ooy-irz-fish oil [Fish Oil] 1,000 mg (120 mg-180 mg) Capsule
1 cap PO DAILY
Discontinued
amoxicillin 500 mg Capsule
500 mg PO TID
Patient Comments:
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
ibuprofen 800 mg Tablet
800 mg PO TIDPRN PRN (Reason: mild pain)
Discharge Orders:
Discharge Patient (As Directed); Ordered 12/16/23
Ordered By: Elvis Frey
Discharge Date and Time
Discharge Date/Time: 12/16/23 17:18
--- NOTE | 2023-12-16 11:30 | CM ---
entered order for discharge.
Pt tolerating low fat diet.
Pt aid he will drive himself home today. His truck is at hospital.
He notified of his dc.
Offered VN he declined need.
PLAN Home no needs .
== END 2023-12-16 17:18 | disposition home or self-care (01) | DRG 439 ==
LOC: 3 WEST ACU 21:57
PROVIDERS: Emergency Medicine; Physician Assistant Medical; ADMITTING PHYSICIAN Hospitalist; ATTENDING PHYSICIAN Internal Medicine; CONSULT PHYSICIAN Internal Medicine Gastroenterology; EMERGENCY PHYSICIAN Emergency Medicine; FAMILY PHYSICIAN Family Medicine
DX: K85.30 Drug induced acute pancreatitis without necrosis or infection (principal); E87.1 Hypo-osmolality and hyponatremia; K29.70 Gastritis, unspecified, without bleeding; K21.9 Gastro-esophageal reflux disease without esophagitis
CPT/HCPCS: 71046; 74177; 76700; 80048; 80053; 83690; 83735; 84478; 84484; 85025; 85027; 93005; 96361; 96374; 96375; 99285; Q9967

== ENCOUNTER 2024-01-06 18:50 | Emergency (ER) | payer BC, SELFPAY ==
[2024-01-06 19:02] VITALS: BP 142/100
[2024-01-06 19:28] LABS: % Eosinophils 3.8 % (0-6); % Immature Granulocytes 0.3 % (0-0.5); % Lymphocytes 43.8 % (20.5-51.1); % Monocytes 11.2 % (1.7-9.3); % Neutrophils 39.9 % (42.2-75.2); Absolute Basophils 0.1 10^3/uL (0-0.2); Absolute Eosinophils 0.3 10^3/uL (0-0.7); Absolute Monocytes 0.8 10^3/uL (0.1-0.6); Absolute Neutrophils 2.7 10^3/uL (1.4-6.5); Hematocrit 42.1 % (39.0-52.0); Hemoglobin 15.3 g/dL (13.0-18.0); Mean Corp Hgb Conc. 36.3 g/dL (33.0-37.0); Mean Corpuscular Hgb 32.6 pg (27.0-31.0); Mean Corpuscular Volume 89.6 fL (80.0-94.0); Mean Platelet Volume 10.3 fL (7.4-10.4); Nucleated Red Blood Cells % 0 % (-); Platelet Count 325 10^3/uL (130-400); White Blood Cell Count 6.8 10^3/uL (4.8-10.8)
[2024-01-06 19:46] LABS: ALT (SGPT) 29 U/L (0-50); AST (SGOT) 36 U/L (17-59); Alkaline Phosphatase 55 U/L (38-126); Blood Urea Nitrogen 15 mg/dl (9-20); Calcium 9.7 mg/dl (8.4-10.2); Carbon Dioxide 30 mmol/L (22-30); Chloride 98 mmol/L (98-107); Glucose 89 mg/dl (70-99); Potassium 4.2 mmol/L (3.5-5.1); Sodium 137 mmol/L (135-145); Total Bilirubin 0.8 mg/dl (0.2-1.3); Total Protein 6.9 g/dl (6.3-8.2); eGFR > 60.00
[2024-01-06 19:47] LABS: Lipase 70 U/L (23-300)
[2024-01-06 21:48] VITALS: BP 145/102
[2024-01-06] MEDS: TYLENOL 1000 MG PO (21:56)
[2024-01-06] MEDS: PROTONIX 40 MG PO (21:57)
--- NOTE | 2024-01-06 21:57 | ED.GENMED ---
History of Present Illness
General
Chief Complaint: Abdominal Pain
Source: patient
Exam Limitations: none
Time Seen by Provider: 01/06/24 21:28
Travel History
Have you had any contact with someone who has COVID-19?: No
Do you have any symptoms of coronavirus? Fever > 100 degrees, chills, cough, shortness of breath, sore throat, loss of taste or smell, muscle aches, or headache?: No
History of Present Illness
History of Present Illness:
This is a 58 year old male that comes in with c/o upper abd pain. Patient was seen in the ER a few weeks ago with Pancreatitis. States that all day today he had this upper abd discomfort. States that it was not as bad as before. Denies any fever,
chills, chest pain, SOB, nausea, vomiting, diarrhea, headache, dizziness, urinary burning.
Past History
Past History
ED Past Medical History: None and Other (Pancreatitis); Negative HTN, Hypercholesterolemia or NIDDM
ED Past Surgical History: Tonsilectomy and Other (Splenectomy)
Social History
Tobacco: Non-smoker
Alcohol: Occasional
Personal:
Living: with family
Employment: Employed
Review of Systems
Review of Systems
All Other Systems: ROS reviewed and negative except as documented in HPI and ROS
Constitutional: Reports no symptoms; Denies fever or chills
EENT: Reports no symptoms
Respiratory: Reports no symptoms; Denies cough or trouble breathing
Cardiac: Reports no symptoms; Denies chest pain
ABD/GI: Reports abdominal pain; Denies nausea, vomiting or diarrhea
: Reports no symptoms
Musculoskeletal: Reports no symptoms
Skin: Reports no symptoms
Neurological: Reports no symptoms; Denies dizzy or headache
Psychiatric: Reports no symptoms
Phy Exam
General Physical Exam
General Presentation: well appearing and no apparent distress
General age: appears stated age
General Skin: warm and dry
General Habitus: normal
General Mental: alert
General Hydration: appears well hydrated
ENT Exam
ENT Exam: TM's normal, pharynx normal and neck supple
Eye Exam
Eye Exam: EOMI
Cardiovascular Exam
Cardiovascular Exam: regular rate/rhythm, no edema, no murmur and normal peripheral pulses
Pulmonary Exam
Pulmonary Exam: lungs clear, no respiratory distress, no rales, chest non tender, no crackles, no rhonchi, no wheezing and no cough
Gastrointestinal Exam
Gastrointestinal Exam: normal bowel sounds, soft, no organomegaly, no pulsatile mass, non distended and tender (Slight upper abd tenderness with palpation)
Musculoskeletal Exam
Musculoskeletal Exam: full ROM and no edema
Skin Exam
Skin Exam: normal color, warm/dry, no rash and no petechia
Psychiatric Exam
Psychiatric Exam: normal mood/affect
Course
Orders/Labs/Results
Orders:
Orders
01/06/24 19:08
Electrocardiogram (*1) Urgent
Reason for Study: Abdominal Pain
EKG- Treatment ONCE
01/06/24 19:20
Comprehensive Metabolic Panel Urgent
Lipase Urgent
01/06/24 19:21
Complete Blood Count/With Diff Urgent
01/06/24 21:47
Acetaminophen [Tylenol] 1,000 mg PO NOW STA
Pantoprazole [Protonix] 40 mg PO NOW STA
US Abdomen Complete/Upper Urgent
Comment:
Reason For Exam: Upper abd pain
Abnormal Lab Results
01/06/24
19:21
MCH 32.6 H pg
(27.0-31.0)
Absolute Monos (auto) 0.8 H 10^3/uL
(0.1-0.6)
Neutrophils % 39.9 L %
(42.2-75.2)
Monocytes % 11.2 H %
(1.7-9.3)
01/06/24 19:21
01/06/24 19:20
Labs unremarkable. Lipase normal at 70
Vital Signs
Initial and Last Documented VS:
Initial Vital Signs
Temp Pulse Resp BP Pulse Ox
98.2 F 73 18 142/100 98
01/06/24 19:02 01/06/24 19:02 01/06/24 19:02 01/06/24 19:02 01/06/24 19:02
Last Documented Vital Signs
Temp Pulse Resp BP Pulse Ox
97.8 F 64 18 145/102 99
01/06/24 21:48 01/06/24 21:48 01/06/24 19:02 01/06/24 21:48 01/06/24 21:48
MDM/Problems Addressed
Differential Diagnosis Includes:
Pancreatitis, GERD, Ulcers
MDM/Problems Addressed:
This is a 58 year old male that comes in with c/o upper abd pain. States that it is not as bad as it was in the past but felt he better get checked.
Will get labs and US.
Back into see patent. States that the Tylenol helped some but he still has this burning. Explained that this may be a gastritis. Will add Carafate as patient is already taking Protonix 40mg BID. Patient to follow up with the family doctor or the GI
specialist. Patient to return with increased pain, vomiting, or fever.
Chronic conditions affecting care:
Pancreatitis
Acute Exacerbation and/or Progression of Chronic Illness:
NA
*Radiology
Radiology exam reviewed: radiology read reviewed (US- Normal appearance of the gallbladder. Fatty infiltration of the liver wit no evidence of a focal hepatic lesion. History of splenectomy. SPleen is not visualized on today's Ultrasound. The
pancreas is unable to be adequately visualized, with no gross abnormality in the peripancreatic region. )
*Pulse Oximetry
Patient hypoxic: no
*EKG
Interpreted by ED Provider?: NA
Rate: EKG- N/A
*Manager Of Training And Development Interpretation
Rate: Manager Of Training And Development- N/A
*Critical Care Note
Total Time (30-74mins, 75-104mins- exclusive of procedures): Not Applicable
ED Attending Note
-
Portions of this chart may have been created with voice recognition software.� Occasional wrong word or��sound alike� substitutions may have occurred due to the inherent limitations of voice recognition software.
Discharge Plan
Departure
Patient Disposition: Home (Routine Discharge)
Date of Disposition: 01/06/24
Time of Disposition: 23:11
Patient with high blood pressure during this ER visit?: Yes
Condition: Good
Covid-19: Not Applicable
Discharge Problem:
Acute upper abdominal pain, Gastritis
Instructions: Gastritis (DC), Ulcer and Gastritis Diet, Abdominal Pain, BLOOD PRESSURE
Prescriptions:
New
sucralfate [Carafate] 1 gram tablet
1 g PO ACHS Qty: 40 0RF
Rx Instructions:
30min-1hour before meals and HS. Dissolve in 10ml of water
No Action
therapeutic multivitamin Tablet
1 tab PO DAILY
omega 3-lfh-dxt-fish oil [Fish Oil] 1,000 mg (120 mg-180 mg) Capsule
1 cap PO DAILY
acetaminophen 325 mg Tablet
650 mg PO Q4HPRN PRN (Reason: mild pain/ fever>100.5F) Qty: 30 0RF
Lactobac/Bifidobac [Visbiome]
1 cap PO DAILY Qty: 30 0RF
pantoprazole [Protonix] 40 mg tablet,delayed release (DR/EC)
40 mg PO BID Qty: 60 0RF
Referrals:
Ashkan Chen, [Family Provider] - Call in 1-3 days for appt
Activity Restrictions/Additional Instructions:
As discussed, your blood work was normal. Your lipase was 70. Your Ultrasound is negative for any acute process. This may be Gastritis. Please continue with your Protonix 40mg twice daily. You have now been given a prescription for Carafate. Please
take this 30min to 1 hour before eating and again at bedtime. Please try to stop any caffeine intake as this is hard on the stomach lining. Follow up with the family doctor for recheck. IF YOU HAVE INCREASED OR CHANGING PAIN, FEVER, VOMITING, OR
YOU HAVE ANY OTHER CONCERNS PLEASE RETURN TO THE [facility]
Interventions
Interventions:
*Risk Screen - Suicide Last Done: 01/06/24 19:02
*General Assessment Last Done: 01/06/24 19:02
*Neglect/Abuse Screening Last Done: 01/06/24 19:02
*ED COVID-19 Vaccine History Last Done: 01/06/24 19:02
NS-Nrrtow-Qharweixgs Assessment Last Done: 01/06/24 21:44
[2024-01-06] MEDS: CARAFATE SUSPENSION 1 GM PO (23:21)
== END 2024-01-06 23:25 | disposition home or self-care (01) ==
LOC: EMR 18:50
PROVIDERS: EMERGENCY PHYSICIAN Emergency Medicine; FAMILY PHYSICIAN Family Medicine
DX: R10.9 Unspecified abdominal pain (principal); K29.70 Gastritis, unspecified, without bleeding; Z90.81 Acquired absence of spleen; R10.10 Upper abdominal pain, unspecified
CPT/HCPCS: 99284; 76700; 80053; 83690; 85025; 93005

== ENCOUNTER → 2024-01-11 06:25 | Day surgery (SDC) | payer BC, SELFPAY | LOC: GI 06:25 | PROVIDERS: ATTENDING PHYSICIAN Internal Medicine Gastroenterology; FAMILY PHYSICIAN Family Medicine | DX: R10.13 Epigastric pain (principal); K44.9 Diaphragmatic hernia without obstruction or gangrene; K31.89 Other diseases of stomach and duodenum; K29.50 Unspecified chronic gastritis without bleeding; K20.0 Eosinophilic esophagitis | CPT/HCPCS: 43239; 88305; 88341; 88342 ==

== ENCOUNTER 2024-07-10 21:51 | Emergency (ER) | payer BC, SELFPAY ==
[2024-07-10 21:58] VITALS: BP 154/94
[2024-07-10 22:24] LABS: % Basophils 1.2 % (0-2); % Eosinophils 4.2 % (0-6); % Immature Granulocytes 0.2 % (0-0.5); % Lymphocytes 47.1 % (20.5-51.1); % Monocytes 9.1 % (1.7-9.3); % Neutrophils 38.2 % (42.2-75.2); Absolute Basophils 0.1 10^3/uL (0-0.2); Absolute Eosinophils 0.3 10^3/uL (0-0.7); Absolute Lymphocytes 3.1 10^3/uL (1.2-3.4); Absolute Monocytes 0.6 10^3/uL (0.1-0.6); Absolute Neutrophils 2.5 10^3/uL (1.4-6.5); Hematocrit 40.9 % (39.0-52.0); Hemoglobin 14.8 g/dL (13.0-18.0); Mean Corp Hgb Conc. 36.2 g/dL (33.0-37.0); Mean Corpuscular Hgb 31.9 pg (27.0-31.0); Mean Corpuscular Volume 88.1 fL (80.0-94.0); Mean Platelet Volume 10.2 fL (7.4-10.4); Nucleated Red Blood Cells % 0 % (-); Platelet Count 305 10^3/uL (130-400); Red Blood Cell Count 4.64 10^6/uL (4.70-6.10); White Blood Cell Count 6.6 10^3/uL (4.8-10.8)
[2024-07-10 22:39] LABS: ALT (SGPT) 27 U/L (0-50); AST (SGOT) 33 U/L (17-59); Albumin 4.3 g/dl (3.5-5.0); Alkaline Phosphatase 60 U/L (38-126); Amylase 56 U/L (30-110); Blood Urea Nitrogen 13 mg/dl (9-20); Calcium 9.4 mg/dl (8.4-10.2); Carbon Dioxide 28 mmol/L (22-30); Chloride 102 mmol/L (98-107); Glucose 101 mg/dl (70-99); Lipase 87 U/L (23-300); Potassium 4.1 mmol/L (3.5-5.1); Sodium 138 mmol/L (135-145); Total Bilirubin 0.6 mg/dl (0.2-1.3); Total Protein 6.9 g/dl (6.3-8.2); eGFR > 60.00
[2024-07-11 00:40] VITALS: BP 135/95; BMI 29.0
--- NOTE | 2024-07-11 01:02 | ED.GENMED ---
History of Present Illness
General
Chief Complaint: Abdominal Pain
Source: patient
Exam Limitations: none
Time Seen by Provider: 07/11/24 00:34
Nursing documentation reviewed up to this point in time: agreed with
History of Present Illness
History of Present Illness:
59-year-old male presents with abdominal pain onset a day or 2 ago after doing a lot of heavy yard work crampy, on the surface, somewhat reminiscent of his prior pancreatitis but did not go to his back no vomiting no chest pain no shortness of
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
Past History
Past History
ED Past Medical History: None and Other (Pancreatitis); Negative HTN, Hypercholesterolemia or NIDDM
ED Past Surgical History: Tonsilectomy and Other (Splenectomy)
Social History
Tobacco: Non-smoker
Alcohol: Occasional
Drug: None
Personal:
Living: with family
Employment: Employed
Review of Systems
Review of Systems
All Other Systems: ROS reviewed and negative except as documented in HPI and ROS
Constitutional: Denies fever or fatigue
EENT: Reports no symptoms
Respiratory: Reports no symptoms
Cardiac: Reports no symptoms
ABD/GI: Reports abdominal pain and nausea; Denies vomiting, diarrhea, constipated, bloody stools, black stools or anorexia
: Reports no symptoms
Musculoskeletal: Reports no symptoms
Skin: Reports no symptoms
Phy Exam
Physical Exam
Physical Exam:
Physical Exam
General: no apparent distress, not acutely ill
Neck: No jaundice
Heart: s1/s2 regular rate and rhythm, no murmur. equal radial pulses.
Lungs: no acute respiratory distress. clear bilaterally
Abdomen: Soft no guarding or rebound
Neuro: alert and oriented. no focal neurological deficits
Skin: no rash
Psychiatric: well kept. interactive and cooperative
Extremities: no edema.
Course
Orders/Labs/Results
Orders:
Orders
07/10/24 22:06
Amylase Urgent
Complete Blood Count/With Diff Urgent
Comprehensive Metabolic Panel Urgent
Lipase Urgent
07/11/24 01:00
EKG [Electrocardiogram (*1)] Urgent
Reason for Study: CAD
EKG- Treatment ONCE
Acetaminophen [Tylenol] 1,000 mg PO NOW STA
Abnormal Lab Results
07/10/24
22:06
RBC 4.64 L 10^6/uL
(4.70-6.10)
MCH 31.9 H pg
(27.0-31.0)
Neutrophils % 38.2 L %
(42.2-75.2)
Glucose 101 H mg/dl
(70-99)
07/10/24 22:06
07/10/24 22:06
Vital Signs
Initial and Last Documented VS:
Initial Vital Signs
Temp Pulse Resp BP Pulse Ox
98.5 F 70 24 154/94 100
07/10/24 21:58 07/10/24 21:58 07/10/24 21:58 07/10/24 21:58 07/10/24 21:58
Last Documented Vital Signs
Temp Pulse Resp BP Pulse Ox
98.5 F 61 16 135/95 97
07/10/24 21:58 07/11/24 00:40 07/11/24 00:40 07/11/24 00:40 07/11/24 00:40
MDM/Problems Addressed
Differential Diagnosis Includes:
Muscle strain gastritis no signs of pancreatitis clinically and by labs
Biliary colic and appendicitis to be less likely by history and physical
MDM/Problems Addressed:
Abdominal pain after doing yard
Chronic conditions affecting care:
Splenectomy
*Pulse Oximetry
Patient hypoxic: no
*EKG
Interpreted by ED Provider?: Yes
Interpretation: normal
Comparison EKG: no comparison EKG present
Heart Rate: 58
Rate: normal
Rhythm: sinus
Ischemia: no ischemia
*Critical Care Note
Total Time (30-74mins, 75-104mins- exclusive of procedures): Not Applicable
Update Note
Update Note:
Update patient nontoxic afebrile soft nontender abdomen, no guarding or rebound no anorexia he tells me symptoms started after doing some heavy yard work, tells me he is different than his pancreatitis pain because is not as severe and does not go
to his back is supported by blood work today, no NSAID use, will check EKG try some p.o. fluids and Tylenol
1:52 AM patient feeling better EKG noted will discharge instructed to return to the ER for worsening symptoms
ED Attending Note
-
Portions of this chart may have been created with voice recognition software.� Occasional wrong word or��sound alike� substitutions may have occurred due to the inherent limitations of voice recognition software.
Discharge Plan
Departure
Patient Disposition: Home (Routine Discharge)
Date of Disposition: 07/11/24
Time of Disposition: 01:52
Patient with high blood pressure during this ER visit?: No
Condition: Good
Covid-19: Not Applicable
Discharge Problem:
Abdominal pain
Instructions: Abdominal Pain
Prescriptions:
No Action
therapeutic multivitamin Tablet
1 tab PO DAILY
omega 7-tma-kpb-fish oil [Fish Oil] 1,000 mg (120 mg-180 mg) Capsule
1 cap PO DAILY
acetaminophen 325 mg Tablet
650 mg PO Q4HPRN PRN (Reason: mild pain/ fever>100.5F) Qty: 30 0RF
Lactobac/Bifidobac [Visbiome]
1 cap PO DAILY Qty: 30 0RF
pantoprazole [Protonix] 40 mg tablet,delayed release (DR/EC)
40 mg PO BID Qty: 60 0RF
sucralfate [Carafate] 1 gram tablet
1 g PO ACHS Qty: 40 0RF
Rx Instructions:
30min-1hour before meals and HS. Dissolve in 10ml of water
Referrals:
Ashkan Chen, DO [Family Provider] -
Interventions
Interventions:
*Risk Screen - Suicide Last Done: 07/10/24 21:58
*General Assessment Last Done: 07/11/24 00:33
*Neglect/Abuse Screening Last Done: 07/10/24 21:58
ED- Fall Risk Assessment Last Done: 07/11/24 00:33
*ED COVID-19 Vaccine History Last Done: 07/11/24 00:33
XM-Uowqdd-Onxhnkaskt Assessment Last Done: 07/11/24 00:33
Discharge Date and Time
Print Language: AZERI
[2024-07-11] MEDS: TYLENOL 1000 MG PO (01:15)
[2024-07-11 02:10] VITALS: BP 129/87
== END 2024-07-11 02:10 | disposition home or self-care (01) ==
LOC: EMR 21:51
PROVIDERS: Emergency Medicine; EMERGENCY PHYSICIAN Emergency Medicine; FAMILY PHYSICIAN Family Medicine
DX: R10.9 Unspecified abdominal pain (principal)
CPT/HCPCS: 99284; 80053; 82150; 83690; 85025; 93005

== ENCOUNTER → 2024-07-13 11:18 | Outpatient (REF) | payer BC, SELFPAY | LOC: RAD 11:18 | PROVIDERS: ATTENDING PHYSICIAN Family Medicine | DX: R10.9 Unspecified abdominal pain (principal) | CPT/HCPCS: 76700 ==

== ENCOUNTER 2024-10-02 10:11 | Emergency (ER) | payer BC, SELFPAY ==
[2024-10-02 10:20] VITALS: BP 108/90
--- NOTE | 2024-10-02 11:12 | ED.GENMED ---
History of Present Illness
<Opal Knott MD, Resident - Last Filed: 10/02/24 14:36>
General
Chief Complaint: Abdominal Pain
Source: patient
Exam Limitations: none
Time Seen by Provider: 10/02/24 10:45
History of Present Illness
History of Present Illness:
This is a 59-year-old male patient with PMH of GERD and Hx of acute pancreatitis who presented to the ED with concerns of abdominal pain. He reports that he has been experiencing abdominal pain since last that has been intermittent and
mostly located in mid to lower left abdomen. He also states that he had 1 episode of dark/blackis stool. He does admit to taking Pepto-Bismol this past Wednesday and occasionally takes Tylenol for pain. In December he was admitted for acute
pancreatitis and treated. A few weeks later he had come back to the ER for upper abdominal pain with but was discharged with Tylenol which had provided him with relief.
He had a colonoscopy done in 2022 which showed diverticulosis in the sigmoid colon.
He denies any fever, chills, or vomiting.
Past History
<Opal Knott MD, Resident - Last Filed: 10/02/24 14:36>
Past History
ED Past Medical History: None, GERD and Other (Pancreatitis); Negative HTN, Hypercholesterolemia or NIDDM
ED Past Surgical History: Tonsilectomy and Other (Splenectomy)
Social History
Tobacco: Non-smoker
Alcohol: Occasional
Drug: None
Personal:
Living: with family
Employment: Employed
Review of Systems
<Opal Knott MD, Resident - Last Filed: 10/02/24 14:36>
Review of Systems
Constitutional: Denies fever or chills
Respiratory: Denies cough
Cardiac: Denies chest pain
ABD/GI: Reports abdominal pain
Phy Exam
<Opal Knott MD, Resident - Last Filed: 10/02/24 14:36>
General Physical Exam
General Presentation: well appearing and no apparent distress
Cardiovascular Exam
Cardiovascular Exam: regular rate/rhythm and no murmur
Heart Sounds: normal
Pulmonary Exam
Pulmonary Exam: lungs clear
Gastrointestinal Exam
Gastrointestinal Exam: soft, non distended and tender (Mid to left lower abdomen)
Neurological Exam
Neurological Exam: oriented x3
Musculoskeletal Exam
Musculoskeletal Exam: no edema
Skin Exam
Skin Exam: warm/dry
Psychiatric Exam
Psychiatric Exam: normal mood/affect
Course
<Opal Knott MD, Resident - Last Filed: 10/02/24 14:36>
Orders/Labs/Results
Orders:
Orders
10/02/24 11:26
CT Abd/pelvis W Iv Cont Urgent
Comment:
Reason For Exam: LLQ pain
10/02/24 12:00
CBC/No Diff [Complete Blood Count/No Diff] Urgent
CMP [Comprehensive Metabolic Panel] Urgent
Lipase Urgent
Abnormal Lab Results
10/02/24
12:00
MCH 32.7 H pg
(27.0-31.0)
10/02/24 12:00
10/02/24 12:00
Vital Signs
Initial and Last Documented VS:
Initial Vital Signs
Temp Pulse Resp BP Pulse Ox
97.8 F 80 16 108/90 97
10/02/24 10:20 10/02/24 10:20 10/02/24 10:20 10/02/24 10:20 10/02/24 10:20
Last Documented Vital Signs
Temp Pulse Resp BP Pulse Ox
97.8 F 82 18 114/76 99
10/02/24 10:20 10/02/24 11:55 10/02/24 11:55 10/02/24 11:55 10/02/24 11:55
<Calos Horn, DO - Last Filed: 10/02/24 11:27>
Orders/Labs/Results
Orders:
Orders
10/02/24 11:26
CT Abd/pelvis W Iv Cont Urgent
Comment:
Reason For Exam: LLQ pain
10/02/24 12:00
CBC/No Diff [Complete Blood Count/No Diff] Urgent
CMP [Comprehensive Metabolic Panel] Urgent
Lipase Urgent
Abnormal Lab Results
10/02/24
12:00
MCH 32.7 H pg
(27.0-31.0)
10/02/24 12:00
10/02/24 12:00
Vital Signs
Initial and Last Documented VS:
Initial Vital Signs
Temp Pulse Resp BP Pulse Ox
97.8 F 80 16 108/90 97
10/02/24 10:20 10/02/24 10:20 10/02/24 10:20 10/02/24 10:20 10/02/24 10:20
Last Documented Vital Signs
Temp Pulse Resp BP Pulse Ox
97.8 F 82 18 114/76 99
10/02/24 10:20 10/02/24 11:55 10/02/24 11:55 10/02/24 11:55 10/02/24 11:55
<Opal Knott MD, Resident - Last Filed: 10/02/24 14:36>
MDM/Problems Addressed
Differential Diagnosis Includes:
Acute pancreatitis, diverticulitis
<Opal Knott MD, Resident - Last Filed: 10/02/24 14:36>
*Critical Care Note
Total Time (30-74mins, 75-104mins- exclusive of procedures): 31
<Opal Knott MD, Resident - Last Filed: 10/02/24 14:36>
Update Note
Update Note:
CBC and CMP were unremarkable. CT abdomen with IV contrast with no significant acute abnormality identified in the abdomen or pelvis. Discussion with patient that he should follow up with PCP/GI outpatient and increased fiber in diet for
diverticulosis and be discharged from ED.
ED Attending Note
<Opal Knott MD, Resident - Last Filed: 10/02/24 14:36>
-
Portions of this chart may have been created with voice recognition software.� Occasional wrong word or��sound alike� substitutions may have occurred due to the inherent limitations of voice recognition software.
<Calos Horn, DO - Last Filed: 10/02/24 11:27>
ED Attending Note
Patient seen and examined by attending physician: Yes
I performed a history and physical exam of patient and discussed management with resident, I reviewed resident's note and agree with documented findings and plan of care.: Yes
ED Attending Note:
I have seen and evaluated the patient with a [id number] encounter. I have spoken to the resident and involved in the medical history, the physical exam, medical decision making.
Evaluation and management service: agree unless noted differently below.
Results interpretation: agree unless noted differently below.
Focused HPI: 59-year-old male presenting for evaluation of generalized abdominal cramping and pain. He does localize the pain to the left lower quadrant. He states compliance with his Protonix as he was diagnosed with gastritis in the past.
Patient noted black stool once today. Patient is already aware this could be bleeding. Patient does acknowledge that he recently took Pepto-Bismol
Physical exam: Sitting in bed comfortably. Very mild left lower quadrant pain.
Medical Decision Making: Will obtain basic blood work to rule out pancreatitis. Will obtain CT to rule out diverticulitis. He has black stools likely related to Pepto-Bismol
Discharge Plan
Departure
Patient Disposition: Home (Routine Discharge)
Date of Disposition: 10/02/24
Time of Disposition: 14:23
Patient with high blood pressure during this ER visit?: No
Discharge Problem:
Diverticulosis, GERD (gastroesophageal reflux disease)
Instructions: Diverticulosis
Prescriptions:
No Action
therapeutic multivitamin Tablet
1 tab PO DAILY
omega 7-mdm-iew-fish oil [Fish Oil] 1,000 mg (120 mg-180 mg) Capsule
1 cap PO DAILY
acetaminophen 325 mg Tablet
650 mg PO Q4HPRN PRN (Reason: mild pain/ fever>100.5F) Qty: 30 0RF
Lactobac/Bifidobac [Visbiome]
1 cap PO DAILY Qty: 30 0RF
pantoprazole [Protonix] 40 mg tablet,delayed release (DR/EC)
40 mg PO BID Qty: 60 0RF
sucralfate [Carafate] 1 gram tablet
1 g PO ACHS Qty: 40 0RF
Rx Instructions:
30min-1hour before meals and HS. Dissolve in 10ml of water
Referrals:
Aurora Reyes MD [Active] -
Ashkan Chen DO [Family Provider] -
Activity Restrictions/Additional Instructions:
Diverticulosis- Increased fiber should be added to diet. If worsening symptoms such as severe abdominal pain or fever/chills, please return to ED.
Follow up with PCP and GI outpatient.
Interventions
Interventions:
*General Assessment Last Done: 10/02/24 11:09
ED- Fall Risk Assessment Last Done: 10/02/24 11:09
GO-Naytql-Tpnohdrcyr Assessment Last Done: 10/02/24 11:09
Discharge Date and Time
Print Language: SYRIAC
[2024-10-02 11:55] VITALS: BP 114/76
[2024-10-02 12:13] LABS: Hematocrit 44.2 % (39.0-52.0); Hemoglobin 15.9 g/dL (13.0-18.0); Mean Corpuscular Hgb 32.7 pg (27.0-31.0); Mean Corpuscular Volume 90.9 fL (80.0-94.0); Platelet Count 298 10^3/uL (130-400); Red Blood Cell Count 4.86 10^6/uL (4.70-6.10); Red Cell Dist. Width 11.9 % (11.5-14.5); White Blood Cell Count 4.9 10^3/uL (4.8-10.8)
[2024-10-02 12:26] LABS: ALT (SGPT) 29 U/L (0-50); AST (SGOT) 32 U/L (17-59); Albumin 4.4 g/dl (3.5-5.0); Alkaline Phosphatase 47 U/L (38-126); Blood Urea Nitrogen 13 mg/dl (9-20); Calcium 9.2 mg/dl (8.4-10.2); Carbon Dioxide 30 mmol/L (22-30); Chloride 100 mmol/L (98-107); Glucose 92 mg/dl (70-99); Lipase 69 U/L (23-300); Potassium 4.1 mmol/L (3.5-5.1); Sodium 139 mmol/L (135-145); Total Bilirubin 0.9 mg/dl (0.2-1.3); Total Protein 7.1 g/dl (6.3-8.2); eGFR > 60.00
[2024-10-02 14:44] VITALS: BP 118/74
== END 2024-10-02 15:03 | disposition home or self-care (01) ==
LOC: EMR 10:11
PROVIDERS: Student in an Organized Health Care Education/Training Program; EMERGENCY PHYSICIAN Student in an Organized Health Care Education/Training Program; FAMILY PHYSICIAN Family Medicine
DX: K57.30 Diverticulosis of large intestine without perforation or abscess without bleeding (principal); K21.9 Gastro-esophageal reflux disease without esophagitis; Z87.19 Personal history of other diseases of the digestive system
CPT/HCPCS: 99284; 74177; 80053; 83690; 85027; Q9967

== ENCOUNTER 2025-01-25 06:23 | Day surgery (SDC) | payer BC, SELFPAY | END 2025-01-25 14:11 | disposition home or self-care (01) | LOC: GI 06:23 | PROVIDERS: ATTENDING PHYSICIAN Internal Medicine Gastroenterology; FAMILY PHYSICIAN Family Medicine | DX: K29.70 Gastritis, unspecified, without bleeding (principal); K20.0 Eosinophilic esophagitis; K22.89 Other specified disease of esophagus; K44.9 Diaphragmatic hernia without obstruction or gangrene; K31.89 Other diseases of stomach and duodenum; R12 Heartburn | CPT/HCPCS: 43239; 88305; 88342 ==

== ENCOUNTER → 2025-01-29 10:31 | Outpatient (REF) | payer BC, SELFPAY | LOC: REG 10:31 | PROVIDERS: ATTENDING PHYSICIAN Family Medicine | DX: M54.59 Other low back pain (principal) | CPT/HCPCS: 72110 ==

== ENCOUNTER → 2025-02-01 10:30 | Outpatient (REF) | payer BC, SELFPAY | LOC: RAD 10:30 | PROVIDERS: ATTENDING PHYSICIAN Physician Assistant; FAMILY PHYSICIAN Family Medicine | DX: S05.50XA Penetrating wound with foreign body of unspecified eyeball, initial encounter (principal) | CPT/HCPCS: 70030 ==

== ENCOUNTER → 2025-02-07 16:20 | Outpatient (REF) | payer BC, SELFPAY | LOC: RAD 16:20 | PROVIDERS: ATTENDING PHYSICIAN Physician Assistant; FAMILY PHYSICIAN Family Medicine | DX: S05.50XA Penetrating wound with foreign body of unspecified eyeball, initial encounter (principal) | CPT/HCPCS: 70030 ==

== ENCOUNTER → 2025-08-06 10:56 | Outpatient (REF) | payer BC, SELFPAY | LOC: REG 10:56 | PROVIDERS: ATTENDING PHYSICIAN Specialist; FAMILY PHYSICIAN Family Medicine | DX: S00.259A Superficial foreign body of unspecified eyelid and periocular area, initial encounter (principal) | CPT/HCPCS: 70030 ==